=== PATIENT | male | born 1955 | race Caucasian/White ===

== ENCOUNTER → 2017-02-25 | Outpatient (REF) | payer BC, OTHER | LOC: M LAB REF 17:17 | DX: L57.0 Actinic keratosis (principal) | CPT/HCPCS: 88305 ==

== ENCOUNTER → 2019-07-20 | Outpatient (REF) | payer MEDICARE, OTHER | LOC: M LAB REF 10:36 | PROVIDERS: ATTEND Dermatology | DX: C44.201 Unspecified malignant neoplasm of skin of unspecified ear and external auricular canal (principal) ==